=== PATIENT | male | born 1960 | race Caucasian/White ===

== ENCOUNTER 2018-12-18 12:04 | Inpatient (IN) | payer MEDICAID ==
--- NOTE | 2018-12-18 12:47 | EDPHY ---
H & P Stated Complaint: high blood pressure (for ever) homeless hasn't been taking any meds Time Seen by Provider: 12/18/18 12:41 HPI/ROS: HPI: This is a 58-year-old male who presents with Chief Complaint: Frontal headache, elevated blood pressure Location: Head Quality: Pain Duration: Several hours Signs and Symptoms: no shortness of breath at rest, no shortness of breath on exertion, no cough, no chest pain, no palpitations, no lower extremity edema, no wheezing, no orthopnea, no paroxysmal nocturnal dyspnea, no fever, no injury/ trauma, no hemoptysis, no carpal pedal spasms Timing: Acute Severity: Moderate Context: Patient reports that he has a history hypertension times 20 years and used to take Diovan but has not taken in greater than 5 years. Patient reports that she started to developed frontal sharp headache that is moderate in intensity this morning. He believes that this is related to his elevated blood pressure. He is homeless. Has no primary care provider. He denies any chest pain, shortness of breath, lower extremity edema, orthopnea, dizziness, vision changes. Modifying Factors: None Comment: ROS: A comprehensive 10 system review of systems is otherwise negative aside from elements mentioned in the history of present illness. MEDICAL/SURGICAL/SOCIAL HISTORY: Medical history: Hypertension. Surgical history: Denies Social history: Homeless. Marijuana user. Nontobacco user. Denies drug use. CONSTITUTIONAL: Overweight, nontoxic appearing middle-aged white male, awake and alert, no obvious distress HEENT: Atraumatic and normocephalic, PERRL, EOMI. Nares patent; no rhinorrhea; no nasal mucosal edema. Tympanic membranes clear. Oropharynx clear, no exudate and moist pink mucosa. Airway patent. No lymphadenopathy. No meningismus. No carotid bruits. Cardiovascular: Normal S1/S2, regular rate, regular rhythm, without murmur rub or gallop. PULMONARY/CHEST: Symmetrical and nontender. Clear to auscultation bilaterally. Good air movement. No accessory muscle usage. ABDOMEN: Soft, nondistended, nontender, no rebound, no guarding, no peritoneal signs, no masses or organomegaly. No CVAT. EXTREMITIES: 2/2 pulses, strength 5/5, no deformities, no clubbing, no cyanosis or edema. NEUROLOGICAL: no focal neuro deficits. GCS 15. Cranial nerves 2-12 grossly intact. SKIN: Warm and dry, no erythema. no rash. Good capillary refill. Source: Patient Exam Limitations: No limitations - Personal History Current Tetanus Diphtheria and Acellular Pertussis (TDAP): Unsure - Medical/Surgical History Hx Asthma: No Hx Chronic Respiratory Disease: No Hx Diabetes: No Hx Cardiac Disease: No Hx Renal Disease: No Hx Cirrhosis: No Hx Alcoholism: No Hx HIV/AIDS: No Hx Splenectomy or Spleen Trauma: No Other PMH: htn - Social History Smoking Status: Never smoked Constitutional: Initial Vital Signs Temperature (C) 36.9 C 12/18/18 12:14 Heart Rate 94 12/18/18 12:14 Respiratory Rate 18 12/18/18 12:14 Blood Pressure 207/126 H 12/18/18 12:14 O2 Sat (%) 97 12/18/18 12:14 O2 Delivery Mode Room Air Allergies/Adverse Reactions: Penicillins Allergy (Verified 12/18/18 12:14) Home Medications: Medication Instructions Recorded Ibuprofen [Advil Migraine] 200 mg PO DAILY PRN 12/18/18 Multivitamins [Multivitamin (*)] 1 each PO DAILY 12/18/18 Medical Decision Making - Diagnostics Imaging Results: Imaging Impressions Chest X-Ray 12/18/18 12:41 Impression: 1. Mild airways disease. No pneumonia or effusion. 2. Suspect lingular atelectasis. Recommend follow-up chest radiograph in 4-6 weeks to ensure resolution. Findings discussed with Emergency Department physician printing assistant, Alize Mullen on 12/18/2018, 13:27. Head CT 12/18/18 12:47 Impression: 1. Left basal ganglia 5 mm old lacunar infarct. 2. No acute hemorrhage, hydrocephalus or mass effect. 3. No sinusitis. Findings and recommendations discussed with Emergency Department physician, Alize Mullen PAC at 13:24 hour, 12/18/2018. Final report concurs with initial preliminary interpretation. Chest/Thorax CTA 12/18/18 13:23 Impression: 1. No evidence of acute pulmonary embolism. 2. Pulmonary opacities in the right middle lobe and right lower lobe suggestive of acute pneumonia, possibly atypical/viral in nature. Adjacent pulmonary nodules possibly infectious in nature, however continued radiographic surveillance is recommended with follow-up CT chest to document resolution. Alize Mullen was notified of these findings by telephone at 3:11 PM on 12/18/2018 ED Course/Re-evaluation: Vital signs reviewed and show blood pressure 207/126 with heart rate 100s. Placed on monitor and storage bin tender. EKG my read with attending shows sinus tachycardia with a rate of 90 beats per minute, nonspecific ST changes IV access, laboratory studies, head CT imaging due to sudden onset of acute sharp headache with severe hypertension 1310: Notified by tech that troponin 0.00 Labs reviewed. WBC 11 K, no anemia, no platelet dysfunction, potassium 3.1 - magnesium level ordered, creatinine 1.0, glucose 112, proBNP 558 No Signs of end-organ dysfunction. Potassium chloride 40 mEq given 1320: Called by Dr. Alicia, head CT scan shows no bleed, no sinusitis but does show an old tiny infarct in the left basal ganglia 1325: D-dimer elevated; CTA chest ordered. 1327: Called by Dr. Alicia, chest x-ray shows no opacity, no effusion. There is a small atypical area on the left hemidiaphragm that is most likely is atelectasis but chest x-ray follow-up in 4-6 weeks is recommended for resolution and interval change. 1409: Magnesium 2.0 1510: Called by Radiology, Dr. Car, who advised that CTA shows no pulmonary embolism but does show ground-glass and right middle lobe and right lower lobe pneumonia. Blood Cultures ordered and Given IV Rocephin and Zithromax. ED decision to consult hospitalist for admission for hypertensive urgency, community-acquired pneumonia, homeless. Spoke with Dr. Damian who kindly agrees to admit patient and provide further care. This patient was seen under the supervision of my secondary supervising physician. I evaluated care for this patient with attending. Discussed this patient with Dr. Russell. Differential Diagnosis: Headache including but not limited to subarachnoid hemorrhage, migraine headache , tension headache and infectious causes such as meningitis, pharyngitis and sinusitis. Chest pain including but not limited to myocardial ischemia, pulmonary embolus, chest wall pain, pleural inflammation and pulmonary infectious causes. - Data Points Laboratory Results: Laboratory Results 12/18/18 12:50 12/18/18 12:50 12/18/18 12/18/18 12/18/18 12:55 12:50 12:50 WBC RBC Hgb Hct MCV MCH MCHC RDW Plt Count MPV Neut % (Auto) Lymph % (Auto) Ing[place] % (Auto) Eos % (Auto) Baso % (Auto) Nucleat RBC Rel Count Absolute Neuts (auto) Absolute Lymphs (auto) Absolute Monos (auto) Absolute Eos (auto) Absolute Basos (auto) Absolute Nucleated RBC Immature Gran % Immature Gran # D-Dimer 0.96 ug/mLFEU H ug/mLFEU (0.00-0.50) Sodium Potassium Chloride Carbon Dioxide Anion Gap BUN Creatinine Estimated GFR Glucose Calcium Magnesium 2.0 mg/dL mg/dL (1.6-2.3) POC Troponin I 0.00 ng/mL ng/mL (0.00-0.08) NT-Pro-B Natriuret Pep 12/18/18 12/18/18 12:50 12:50 WBC 11.31 10^3/uL H 10^3/uL (3.80-9.50) RBC 4.60 10^6/uL 10^6/uL (4.40-6.38) Hgb 14.4 g/dL g/dL (13.7-17.5) Hct 41.4 % % (40.0-51.0) MCV 90.0 fL fL (81.5-99.8) MCH 31.3 pg pg (27.9-34.1) MCHC 34.8 g/dL g/dL (32.4-36.7) RDW 12.7 % % (11.5-15.2) Plt Count 285 10^3/uL 10^3/uL (150-400) MPV 9.0 fL fL (8.7-11.7) Neut % (Auto) 73.6 % % (39.3-74.2) Lymph % (Auto) 16.6 % % (15.0-45.0) Ingham % (Auto) 5.7 % % (4.5-13.0) Eos % (Auto) 2.6 % % (0.6-7.6) Baso % (Auto) 0.6 % % (0.3-1.7) Nucleat RBC Rel Count 0.0 % % (0.0-0.2) Absolute Neuts (auto) 8.33 10^3/uL H 10^3/uL (1.70-6.50) Absolute Lymphs (auto) 1.88 10^3/uL 10^3/uL (1.00-3.00) Absolute Monos (auto) 0.64 10^3/uL 10^3/uL (0.30-0.80) Absolute Eos (auto) 0.29 10^3/uL 10^3/uL (0.03-0.40) Absolute Basos (auto) 0.07 10^3/uL 10^3/uL (0.02-0.10) Absolute Nucleated RBC 0.00 10^3/uL 10^3/uL (0-0.01) Immature Gran % 0.9 % % (0.0-1.1) Immature Gran # 0.10 10^3/uL 10^3/uL (0.00-0.10) D-Dimer Sodium 137 mEq/L mEq/L (135-145) Potassium 3.1 mEq/L L mEq/L (3.5-5.2) Chloride 103 mEq/L mEq/L (97-110) Carbon Dioxide 24 mEq/l mEq/l (22-31) Anion Gap 10 mEq/L mEq/L (6-14) BUN 17 mg/dL mg/dL (7-23) Creatinine 1.0 mg/dL mg/dL (0.7-1.3) Estimated GFR > 60 Glucose 112 mg/dL H mg/dL (70-100) Calcium 9.0 mg/dL mg/dL (8.5-10.4) Magnesium POC Troponin I NT-Pro-B Natriuret Pep 558 pg/mL H pg/mL (0-125) Medications Given: Discontinued Medications Potassium Chloride (Potassium Chloride Oral Liquid) 40 meq PO EDNOW ONE Stop: 12/18/18 13:40 Last Admin: 12/18/18 15:09 Dose: 40 meq Point of Care Test Results: Chemistry 12/18/18 12:55 POC Troponin I 0.00 ng/mL ng/mL (0.00-0.08) Departure - Departure Disposition: [facility] Acute Clinical Impression: Infarction of left basal ganglia, Hypertensive urgency, Hypokalemia Community acquired pneumonia Qualifiers: Laterality: right Lung location: lower lobe of lung Qualified Code(s): J18.1 - Lobar pneumonia, unspecified organism Condition: Fair
[2018-12-18 13:08] LABS: PLATELET COUNT 285 10^3/uL (150-400)
[2018-12-18] MEDS ORDERED: POTASSIUM CL 20 MEQ/15 ML UDCUP PO ONE (13:39)
[2018-12-18] MEDS ORDERED: IOPAMIDOL (ISOVUE 370) 100 ML BTL IV ONE (13:47)
[2018-12-18] MEDS ORDERED: AZITHROMYCIN IV 500 MG in D5W 250 ML IV ONE (15:11)
[2018-12-18] MEDS ORDERED: LABETALOL HCL 5 MG/ML 20 ML MDV IVP ONE (15:23)
[2018-12-18] MEDS ORDERED: HYDROCODONE/APAP 5/325 TAB PO PRN (15:29)
[2018-12-18] MEDS ORDERED: ONDANSETRON 4 MG/2 ML VIAL IVP PRN (15:29)
[2018-12-18] MEDS ORDERED: HYDROmorphONE/DILAUDID 1 MG/ML INJ IVP PRN (15:29)
[2018-12-18] MEDS ORDERED: ONDANSETRON DISINTEGRATING 4 MG TAB PO PRN (15:29)
--- NOTE | 2018-12-18 16:23 | PDGENHP ---
History and Physical - Chief Complaint cough, headache - History of Present Illness 58 yo male with h/o hypertension presented to the ED after he developed a pounding, pulsating headache behind his eyes while walking up [place] to the [facility]. He denied CP or SOB. He does endorse of cough, which is intermittently productive. He denies fevers, chills or rigors. No abdominal pain, N/V. No changes in bowel or bladder habits. He also acknowledges LE edema, which is chronic. He used to take anti-hypertensive medications, but has not taken meds for some time due to inability to pay. He is worried about his poor hygiene and tearful about his difficulty getting his life together. He is admitted for hypertensive urgency and possible pneumonia. History Information - Allergies/Home Medication List Allergies/Adverse Reactions: Penicillins Allergy (Verified 12/18/18 12:14) Home Medications: Ibuprofen [Advil Migraine] 200 mg PO DAILY PRN 12/18/18 [Last Taken Unknown] Multivitamins [Multivitamin (*)] 1 each PO DAILY 12/18/18 [Last Taken Unknown] I have personally reviewed and updated: family history, medical history, social history, surgical history - Past Medical History hypertension - Surgical History Reports: no pertinent surgical hx - Family History Positive for: cancer Additional family history: Mom had NHL - Social History Smoking Status: Never smoked Alcohol Use: Rarely Drug Use: Marijuana Additional social history: Homeless Review of Systems Review of Systems: ROS: 10pt was reviewed & negative except for what was stated in HPI & below Physical Exam Physical Exam: Temp Pulse Resp BP Pulse Ox 36.9 C 104 H 16 191/131 H 97 12/18/18 12:14 12/18/18 14:16 12/18/18 14:16 12/18/18 14:16 12/18/18 14:16 Constitutional: no apparent distress Eyes: PERRL Ears, Nose, Mouth, Throat: moist mucous membranes Cardiovascular: regular rate and rhythym Respiratory: no respiratory distress, clear to auscultation, reduced air movement Gastrointestinal: normoactive bowel sounds, soft, non-tender abdomen Skin: warm Musculoskeletal: full muscle strength, other (2-3 + b/l LE pitting edema) Neurologic: AAOx3 Psychiatric: interacting appropriately Lab Data & Imaging Review 12/18/18 12:50 12/18/18 12:50 WBC 11.31 10^3/uL (3.80-9.50) H 12/18/18 12:50 RBC 4.60 10^6/uL (4.40-6.38) 12/18/18 12:50 Hgb 14.4 g/dL (13.7-17.5) 12/18/18 12:50 Hct 41.4 % (40.0-51.0) 12/18/18 12:50 MCV 90.0 fL (81.5-99.8) 12/18/18 12:50 MCH 31.3 pg (27.9-34.1) 12/18/18 12:50 MCHC 34.8 g/dL (32.4-36.7) 12/18/18 12:50 RDW 12.7 % (11.5-15.2) 12/18/18 12:50 Plt Count 285 10^3/uL (150-400) 12/18/18 12:50 MPV 9.0 fL (8.7-11.7) 12/18/18 12:50 Neut % (Auto) 73.6 % (39.3-74.2) 12/18/18 12:50 Lymph % (Auto) 16.6 % (15.0-45.0) 12/18/18 12:50 Payne % (Auto) 5.7 % (4.5-13.0) 12/18/18 12:50 Eos % (Auto) 2.6 % (0.6-7.6) 12/18/18 12:50 Baso % (Auto) 0.6 % (0.3-1.7) 12/18/18 12:50 Nucleat RBC Rel Count 0.0 % (0.0-0.2) 12/18/18 12:50 Absolute Neuts (auto) 8.33 10^3/uL (1.70-6.50) H 12/18/18 12:50 Absolute Lymphs (auto) 1.88 10^3/uL (1.00-3.00) 12/18/18 12:50 Absolute Monos (auto) 0.64 10^3/uL (0.30-0.80) 12/18/18 12:50 Absolute Eos (auto) 0.29 10^3/uL (0.03-0.40) 12/18/18 12:50 Absolute Basos (auto) 0.07 10^3/uL (0.02-0.10) 12/18/18 12:50 Absolute Nucleated RBC 0.00 10^3/uL (0-0.01) 12/18/18 12:50 Immature Gran % 0.9 % (0.0-1.1) 12/18/18 12:50 Immature Gran # 0.10 10^3/uL (0.00-0.10) 12/18/18 12:50 D-Dimer 0.96 ug/mLFEU (0.00-0.50) H 12/18/18 12:50 Sodium 137 mEq/L (135-145) 12/18/18 12:50 Potassium 3.1 mEq/L (3.5-5.2) L 12/18/18 12:50 Chloride 103 mEq/L (97-110) 12/18/18 12:50 Carbon Dioxide 24 mEq/l (22-31) 12/18/18 12:50 Anion Gap 10 mEq/L (6-14) 12/18/18 12:50 BUN 17 mg/dL (7-23) 12/18/18 12:50 Creatinine 1.0 mg/dL (0.7-1.3) 12/18/18 12:50 Estimated GFR > 60 12/18/18 12:50 Glucose 112 mg/dL (70-100) H 12/18/18 12:50 Calcium 9.0 mg/dL (8.5-10.4) 12/18/18 12:50 Magnesium 2.0 mg/dL (1.6-2.3) 12/18/18 12:50 POC Troponin I 0.00 ng/mL (0.00-0.08) 12/18/18 12:55 NT-Pro-B Natriuret Pep 558 pg/mL (0-125) H 12/18/18 12:50 Visualized and Interpreted Chest x-ray results: Yes Chest X-Ray results: infiltrate Visualized and Interpreted EKG results: Yes EKG Interpretation: Positive for: normal sinsus rhythm, Q waves Assessment & Plan Assessment: 58 yo homeless male presents with EDWARD and cough, found to have hypertensive urgency and possible CAP Hypertensive urgency - symptomatic with EDWARD, no CP or SOB. EKG with Q waves in anterior/inferior leads. -IV Labetalol now, aiming for 25% reduction in BP over next few hours -start oral Lisinopril -PRN Labetalol for SBP >180 -echo as below -monitor on telemetry CAP - Pt does have cough and mild leukocytosis, afebrile, does not appear toxic. BCx's pending. -send PCT and RVP -will cont Ceftriaxone / Azithromycin for now -prn nebs, anti-tussives LE edema - chronic, suspect venous stasis, but warrants further w/u -b/l LE u/s to r/o DVT -check echo -start oral lasix, elevate legs Hypokalemia - replaced orally in ED -recheck in am Homelessness - CM consult DVT PPLX - Lovenox Full code Dispo - admit to inpt, anticipate >48 hrs hospitalization for ongoing management of hypertensive urgency and possible CAP
--- NOTE | 2018-12-18 17:21 | ASMTCMCOM ---
CM Note CM Note Notes: Pt presented to the Emergency Department with complaints of a headache, elevated blood pressure and edema. History includes marijuana use, homelessness and HTN. Pt admitted for hypertensive urgency and possible PNA. Discharge needs remain unclear at this time. CM will continue to follow. Discharge Plan: To be determined Date Signed: 12/18/2018 05:21 PM Electronically Signed By:Mireya Koch RN
[2018-12-18] MEDS: LISINOPRIL 10 MG TAB PO SCH (17:49)
[2018-12-18] MEDS: FUROSEMIDE 20 MG TAB PO SCH (17:52)
[2018-12-18] MEDS: guaiFENesin 600 MG TAB.ER PO SCH (21:25)
[2018-12-18] MEDS: ACETAMINOPHEN 325 MG TAB PO PRN (21:25)
[2018-12-18] MEDS: ENOXAPARIN 40 MG/0.4 ML SYR SC SCH (21:25)
[2018-12-18] MEDS: GUAIFENESIN/DM 10 ML UDCUP PO PRN (21:26)
[2018-12-18] MEDS: LABETALOL HCL 5 MG/ML 20 ML MDV IVP PRN (21:35)
[2018-12-19] MEDS: LABETALOL HCL 5 MG/ML 20 ML MDV IVP PRN ×3 (02:09→20:23)
[2018-12-19 04:54] LABS: PLATELET COUNT 303 10^3/uL (150-400)
--- NOTE | 2018-12-19 07:53 | PDMN ---
Medical Necessity Medical necessity: Pt meets IP criteria per MD & MCG M-197; est los >2 mn for eval/tx of hypertensive urgency (BP 207/126), LE edema & possible pneumonia; admit for further workup/monitoring, IV abx & IV Labetol/med management; hx homelessness
[2018-12-19] MEDS: POTASSIUM CL 20 MEQ TAB PO SCH (08:35)
[2018-12-19] MEDS: guaiFENesin 600 MG TAB.ER PO SCH ×2 (08:35→20:24)
[2018-12-19] MEDS: LISINOPRIL 10 MG TAB PO SCH (08:35)
[2018-12-19] MEDS: FUROSEMIDE 20 MG TAB PO SCH (08:36)
[2018-12-19] MEDS: ENOXAPARIN 40 MG/0.4 ML SYR SC SCH ×2 (08:36→20:33)
[2018-12-19] MEDS ORDERED: AZITHROMYCIN IV 500 MG in NS 250 ML IV SCH (09:00)
--- NOTE | 2018-12-19 12:16 | ECHO ---
[email or web address] [address] [address] Main: [phone] Echocardiography Examination Transthoracic Name: HOLGER CHAVEZ MR#: [id number] Study Date: 12/18/2018 Study Time: 04:32 PM Date of : 1960 Age: 58 year(s) Height: 190.5 cm (75 in.) Weight: 148.33 kg (327 lb.) BSA: 2.7 m2 Gender: Male Examination: Echo Indication: HTN/LE edema Image Quality: Fair Contrast: Requested by: ?? BP: / Heart Rate: Rhythm: Indication: HTN/LE edema Procedure Staff Referring Physician: Computer Sciences Professor: Kriss Khanna RDCS Reading Physician: Toni Love MD Requesting Provider: Indication: HTN/LE edema Measurements Chambers AV/MV Label Value Normal Value Label Value Normal Value EF lower range (%) 65 % AV PGmean 5 mmHg EF upper range (%) 70 % AV Vmax, Curve 1.45 m/s IVSd, 2D 1.1 cm (0.6cm - 1.1cm) MV A Vmax 0.92 m/s LVDd, 2D 5.9 cm (4.2cm - 5.9cm) MV E' lateral 0.06 m/s LVEF, BP 68 % (55% - 70%) MV E' mean 0.06 m/s LVEF, MOD2 71 % (55% - 70%) MV E' septal 0.06 m/s LVEF, MOD4 62 % (55% - 70%) MV E Vmax 0.58 m/s LVPWd, 2D 1.1 cm (0.6cm - 1cm) MV E/A 0.63 LA Area, A2C 26 cm2 (0cm2 - 20cm2) MV E/E' lateral 10.5 LA Volume, A2C 85 ml (18ml - 58ml) MV E/E' mean 9.67 LADs, 2D 4.2 cm (3cm - 4cm) MV E/E' septal 9.8 (0.5 - 1.7) Additional Vessels Label Value Normal Value AoAsc 3.8 cm AoRoot, MM 3.5 cm (2.2cm - 3.7cm) Conclusions Left ventricular systolic ejection fraction was normal (>65%) Patient: HOLGER CHAVEZ Study Date: 12/18/2018 Page 1 of 2 04:32 PM Mild mitral regurgitation Grossly normal aortic, tricuspid, and pulmonic valves Findings Left Ventricle: E/a wave reversal.. Normal global systolic left ventricular function. EF range is estimated at 65 % - 70 %. There is mild concentric left ventricular hypertrophy. Right Ventricle: Normal size right ventricle. Mitral Valve: Mitral valve appears structurally normal. Mild mitral regurgitation. Aortic Valve: Aortic valve opens well.. Aortic leaflets are structurally normal. No aortic valve regurgitation. Tricuspid Valve: Tricuspid valve leaflets are structurally normal. Trivial tricuspid regurgitation. Pulmonic Valve: Pulmonic valve is poorly visualized. Aorta: The aortic root size in M-mode measures 3.5 cm. The ascending aorta measures 3.8 cm. Aorta Measurements AoRoot, MM is 3.5 cm. Exam Details Procedure Ordered: Echo Procedure Status: Routine study Image Quality: Fair Facility Location: Cardiac Echo 1 (No Signature Object) Patient: HOLGER CHAVEZ Study Date: 12/18/2018 Page 2 of 2 04:32 PM [id number]
[2018-12-19] MEDS: ACETAMINOPHEN 325 MG TAB PO PRN ×2 (14:51→20:27)
--- NOTE | 2018-12-19 15:06 | HOSPPROG ---
Hospitalist Progress Note Assessment/Plan: 58 yo homeless male presents with EDWARD and cough, found to have hypertensive urgency and possible CAP Hypertensive urgency - symptomatic with EDWARD, no CP or SOB. EKG with Q waves in anterior/inferior leads. -S/p IV Labetalol on admission -started on oral Lisinopril, will continue for now -PRN Labetalol for SBP >180 -echo as below -monitor on telemetry CAP - Pt does have cough and mild leukocytosis, afebrile, does not appear toxic. BCx's pending. -send PCT- elevated to 0.13 on admission and RVP- negative -will cont Ceftriaxone / Azithromycin -prn nebs, anti-tussives LE edema - chronic, suspect venous stasis, but warrants further w/u -b/l LE u/s to r/o DVT -TTE shows normal EF, normal RV -started on oral lasix, will d/c Hypokalemia - replaced orally in ED -3.7 this AM, continue to monitor Homelessness - CM consulted DVT PPLX - Lovenox Full code Dispo - Pending clinical course, possible d/c tomorrow if BP improved, respiratory status Subjective: Patient reports some improved SOB this AM Objective: Vital Signs Temp Pulse Resp BP Pulse Ox 36.4 C 91 12 194/117 H 97 12/19/18 11:19 12/19/18 11:19 12/19/18 11:19 12/19/18 15:00 12/19/18 11:19 Microbiology 12/19/18 09:50 Respiratory Panel (PCR) - Final Nasal, Sinus - Swab No Organism Detected By Pcr 12/18/18 21:20 - Final Sputum, Expectorated Laboratory Results 12/19/18 03:52 12/19/18 03:52 12/18/18 12/19/18 12/20/18 05:59 05:59 06:59 Intake Total 650 Output Total 1750 300 Balance -1100 -300 - Physical Exam Constitutional: no apparent distress Eyes: PERRL Ears, Nose, Mouth, Throat: moist mucous membranes Cardiovascular: regular rate and rhythym Respiratory: no respiratory distress, reduced air movement Gastrointestinal: soft, non-tender abdomen Musculoskeletal: full muscle strength Neurologic: AAOx3 Psychiatric: interacting appropriately ICD10 Worksheet Patient Problems: Problems Problem Status Onset Community acquired pneumonia Acute Hypertensive urgency Acute Hypokalemia Acute Infarction of left basal ganglia Acute
[2018-12-19] MEDS ORDERED: LISINOPRIL 10 MG TAB PO ONE (16:02)
[2018-12-19] MEDS: GUAIFENESIN/DM 10 ML UDCUP PO PRN (20:32)
[2018-12-20] MEDS: LABETALOL HCL 5 MG/ML 20 ML MDV IVP PRN ×2 (05:53→19:33)
[2018-12-20] MEDS: guaiFENesin 600 MG TAB.ER PO SCH ×2 (08:38→21:57)
[2018-12-20] MEDS: LISINOPRIL 10 MG TAB PO SCH ×2 (08:38→08:49)
[2018-12-20] MEDS: POTASSIUM CL 20 MEQ TAB PO SCH (08:38)
[2018-12-20] MEDS: FUROSEMIDE 20 MG TAB PO SCH (08:38)
[2018-12-20] MEDS: ENOXAPARIN 40 MG/0.4 ML SYR SC SCH ×2 (08:39→21:57)
[2018-12-20] MEDS ORDERED: AZITHROMYCIN 250 MG TAB PO SCH (09:00)
--- NOTE | 2018-12-20 14:30 | HOSPPROG ---
Hospitalist Progress Note Assessment/Plan: 58 yo homeless male presents with EWDARD and cough, found to have hypertensive urgency and possible CAP Hypertensive urgency - symptomatic with EDWARD, no CP or SOB. EKG with Q waves in anterior/inferior leads. -S/p IV Labetalol on admission -started on oral Lisinopril 10 mg on admission -BP continues to be elevated 186/96 this AM, increased Lisinopril to 20 mg, may need to increase to 40 mg -PRN Labetalol for SBP >180 -echo as below -monitor on telemetry CAP - Pt does have cough and mild leukocytosis, afebrile, does not appear toxic. BCx's NGTD. - PCT elevated to 0.13 on admission and RVP- negative -will transition from Ceftriazone/Azithromycin to Levaquin, Day 3/5 of abx -prn nebs, anti-tussives LE edema - chronic, suspect venous stasis, but warrants further w/u -b/l LE u/s to r/o DVT negative -TTE shows normal EF, normal RV -started on oral lasix, will d/c Hypokalemia - replaced orally in ED -3.7 this AM, continue to monitor Homelessness - CM consulted DVT PPLX - Lovenox Full code Dispo - Pending clinical course, possible d/c tomorrow if BP improved, respiratory status Subjective: Patient reports continued headache Objective: Vital Signs Temp Pulse Resp BP Pulse Ox 36.8 C 103 H 18 205/120 H 94 12/20/18 12:00 12/20/18 12:00 12/20/18 12:00 12/20/18 12:00 12/20/18 12:00 Microbiology 12/18/18 21:20 - Final Sputum, Expectorated 12/19/18 09:50 Respiratory Panel (PCR) - Final Nasal, Sinus - Swab No Organism Detected By Pcr Laboratory Results 12/19/18 03:52 12/19/18 03:52 12/19/18 12/20/18 12/21/18 04:59 05:59 05:59 Intake Total Output Total 900 Balance -900 - Physical Exam Constitutional: no apparent distress Eyes: PERRL Ears, Nose, Mouth, Throat: moist mucous membranes Cardiovascular: regular rate and rhythym Respiratory: no respiratory distress Gastrointestinal: soft, non-tender abdomen Skin: warm Musculoskeletal: full muscle strength Neurologic: AAOx3 Psychiatric: anxious ICD10 Worksheet Patient Problems: Problems Problem Status Onset Community acquired pneumonia Acute Hypertensive urgency Acute Hypokalemia Acute Infarction of left basal ganglia Acute
--- NOTE | 2018-12-20 15:42 | ASMTCMCOM ---
CM Note CM Note Notes: Met with pt and spoke at length about community resources and next steps for pt. He reports he is willing to go to [facility] tomorrow and is appreciative of CM reserving a bed for him. Pt was provided information about [employer], obtaining linkage at [facility], and working with [facility] to obtain temporary benefits. Pt was appreciative of the information. Pt needs PCP appt to follow-up with; CM attempted to schedule but could not because [facility] is closed Friday. Plan: [facility]. Needs PCP appt at [facility] and Bus passes. Date Signed: 12/20/2018 03:41 PM Electronically Signed By:MAYKEL Strickland
[2018-12-20] MEDS: ACETAMINOPHEN 325 MG TAB PO PRN (19:31)
[2018-12-21] MEDS: LABETALOL HCL 5 MG/ML 20 ML MDV IVP PRN ×5 (00:39→23:38)
[2018-12-21] MEDS: LISINOPRIL 10 MG TAB PO SCH ×2 (08:37→11:10)
[2018-12-21] MEDS ORDERED: LISINOPRIL 20 MG TAB PO ONE (08:37)
[2018-12-21] MEDS: ENOXAPARIN 40 MG/0.4 ML SYR SC SCH ×2 (08:38→20:23)
[2018-12-21] MEDS: guaiFENesin 600 MG TAB.ER PO SCH ×2 (08:38→20:23)
[2018-12-21] MEDS: POTASSIUM CL 20 MEQ TAB PO SCH (08:38)
[2018-12-21] MEDS: ACETAMINOPHEN 325 MG TAB PO PRN ×3 (08:57→22:28)
[2018-12-21] MEDS ORDERED: LOPERAMIDE HCL 2 MG CAP PO PRN (12:11)
[2018-12-21] MEDS: amLODIPine BESYLATE 5 MG TAB PO SCH (12:51)
[2018-12-21] MEDS: GUAIFENESIN/DM 10 ML UDCUP PO PRN ×2 (12:51→23:44)
--- NOTE | 2018-12-21 16:14 | HOSPPROG ---
Hospitalist Progress Note Assessment/Plan: 58 yo homeless male presents with EDWARD and cough, found to have hypertensive urgency and possible CAP Hypertensive urgency - symptomatic with EDWARD, no CP or SOB. EKG with Q waves in anterior/inferior leads. -S/p IV Labetalol on admission -started on oral Lisinopril 10 mg on admission -BP continues to be elevated with SBP in 200's overnight -Increased Lisinopril to 40 mg, added Amlodipine 5 mg qd this afternoon -PRN Labetalol for SBP >180 -echo as below -monitor on telemetry CAP - Pt does have cough and mild leukocytosis, afebrile, does not appear toxic. BCx's NGTD. - PCT elevated to 0.13 on admission and RVP- negative -will transition from Ceftriazone/Azithromycin to Levaquin, Day 4/5 of abx -prn nebs, anti-tussives LE edema - chronic, suspect venous stasis, but warrants further w/u -b/l LE u/s to r/o DVT negative -TTE shows normal EF, normal RV -started on oral lasix, d/c Hypokalemia - replaced orally -continue to monitor Diarrhea - Having multiple loose stools overnight - C Diff negative - Likely antibiotic related diarrhea, will start PRN Imodium Homelessness - CM consulted DVT PPLX - Lovenox Full code Dispo - Pending clinical course, possible d/c tomorrow if BP improved, respiratory status Subjective: Patient reports multiple loose BMs overnight Objective: Vital Signs Temp Pulse Resp BP Pulse Ox 37.0 C 95 16 177/112 H 97 12/21/18 12:00 12/21/18 14:38 12/21/18 12:00 12/21/18 14:38 12/21/18 12:00 Microbiology 12/18/18 21:20 - Final Sputum, Expectorated Laboratory Results 12/19/18 03:52 12/19/18 03:52 12/20/18 12/21/18 12/22/18 05:59 05:59 05:59 Intake Total 1850 Output Total 1999 Balance -150 - Physical Exam Constitutional: no apparent distress Eyes: PERRL Ears, Nose, Mouth, Throat: moist mucous membranes Cardiovascular: regular rate and rhythym Respiratory: no respiratory distress, reduced air movement Gastrointestinal: soft, non-tender abdomen Skin: warm Musculoskeletal: full muscle strength Neurologic: AAOx3 Psychiatric: anxious ICD10 Worksheet Patient Problems: Problems Problem Status Onset Community acquired pneumonia Acute Hypertensive urgency Acute Hypokalemia Acute Infarction of left basal ganglia Acute
[2018-12-22 08:50] VITALS: BP 187/105
[2018-12-22] MEDS: LISINOPRIL 10 MG TAB PO SCH (08:53)
[2018-12-22] MEDS: guaiFENesin 600 MG TAB.ER PO SCH (08:54)
[2018-12-22] MEDS: POTASSIUM CL 20 MEQ TAB PO SCH (08:54)
[2018-12-22] MEDS: amLODIPine BESYLATE 5 MG TAB PO SCH (08:54)
[2018-12-22] MEDS: ENOXAPARIN 40 MG/0.4 ML SYR SC SCH (08:55)
[2018-12-22] MEDS: ACETAMINOPHEN 325 MG TAB PO PRN (08:59)
--- NOTE | 2018-12-22 11:49 | ASMTLACE ---
LACE Length of stay for Answers: 3 days current admission Acuity / Level of Answers: Yes Care: Did the patient have an inpatient admission? Comorbidities - select Answers: Other Notes: HTN all that apply # of Emergency department Answers: 1-2 visits in the last 6 months Social determinants Answers: Homelessness (street, chcf) Score: 11 Date Signed: 12/22/2018 11:47 AM Electronically Signed By:Lisa Moreira RN
--- NOTE | 2018-12-22 11:53 | ASMTDCNOTE ---
Case Management Discharge Discharge Order Complete? Answers: Yes Patient to Obtain Answers: Independently Medications Transportation Arranged Answers: Family/Friends Discharge Comments Notes: 12/22/2018 Case Mangement Note Set appointment at [facility] on at 2 pm. Provided info to pt. Pt declined custodial bed. Has arranged to stay with a friend rather than custodial. Declined coordinated entry stating it wasn't necessary. [facility] to follow pt. Case Management d/c poc: home with friend with appt at Dr. Amaya's office on . Date Signed: 12/22/2018 11:50 AM Electronically Signed By:Lisa Moreira RN
--- NOTE | 2018-12-22 11:53 | ASDISCHSUM ---
Discharge Information Plan Status:Home with No Needs Medically Cleared to Leave:12/22/2018 Discharge Date:12/22/2018 CM D/C Disposition:Home, Routine, Self-Care ADT D/C Disposition: Projected Discharge Date:12/22/2018 Transportation at D/C: Discharge Delay Reason: Follow-Up Date:12/22/2018 Discharge Slot: Final Diagnosis: Placement Information Patient Contact Information Contact Name:EVA Relationship: Address: Home Phone: Work Phone: City: Alternate Phone: State[email or web address] Code: Email: Financial Information Financial Class:Medicaid Primary Plan Desc:MEDICAID [facility] Primary Plan Number:[id number] Secondary Plan Desc: Secondary Plan Number: Assessment Information LACE LACE Length of stay for Answers: 3 days current admission Acuity / Level of Answers: Yes Care: Did the patient have an inpatient admission? Comorbidities - select Answers: Other Notes: HTN all that apply # of Emergency department Answers: 1-2 visits in the last 6 months Social determinants Answers: Homelessness (street, residential) Score: 11 Date Signed: 12/22/2018 11:47 AM Electronically Signed By:Lisa Moreira RN [facility] CM Progress Note CM Note CM Note Notes: Pt presented to the Emergency Department with complaints of a headache, elevated blood pressure and edema. History includes marijuana use, homelessness and HTN. Pt admitted for hypertensive urgency and possible PNA. Discharge needs remain unclear at this time. CM will continue to follow. Discharge Plan: To be determined Date Signed: 12/18/2018 05:21 PM Electronically Signed By:Mireya Koch RN [facility] CM Progress Note CM Note CM Note Notes: Met with pt and spoke at length about community resources and next steps for pt. He reports he is willing to go to [facility] tomorrow and is appreciative of CM reserving a bed for him. Pt was provided information about Coordinated Entry, obtaining linkage at [facility], and working with [facility] to obtain temporary benefits. Pt was appreciative of the information. Pt needs PCP appt to follow-up with; CM attempted to schedule but could not because [employer] is closed Friday. Plan: [facility]. Needs PCP appt at [facility] and Bus passes. Date Signed: 12/20/2018 03:41 PM Electronically Signed By:MAYKEL Strickland Case Management Discharge Plan Note Case Management Discharge Discharge Order Complete? Answers: Yes Patient to Obtain Answers: Independently Medications Transportation Arranged Answers: Family/Friends Discharge Comments Notes: 12/22/2018 Case Mangement Note Set appointment at [facility] on at 2 pm. Provided info to pt. Pt declined residential bed. Has arranged to stay with a friend rather than residential. Declined coordinated entry stating it wasn't necessary. [facility] to follow pt. Case Management d/c poc: home with friend with appt at Dr. Amaya's office on . Date Signed: 12/22/2018 11:50 AM Electronically Signed By:Lisa Moreira RN Intervention Information
--- NOTE | 2018-12-22 16:22 | PDDCSUM ---
Discharge Summary Discharge Summary: Date of Admission: 12/18/2018 Date of Discharge: 12/22/2018 Consults: Behavioral Health Procedures: Head CT, CXR Followup: PCP Hospital Course Problem List: 58 yo homeless male presents with EDWARD and cough, found to have hypertensive urgency and CAP Hypertensive urgency - symptomatic with EDWARD, no CP or SOB. EKG with Q waves in anterior/inferior leads. -S/p IV Labetalol on admission -started on oral Lisinopril 10 mg on admission -Increased Lisinopril to 40 mg, added Amlodipine 5 mg qd for discharge -echo as below -monitor on telemetry CAP - Pt does have cough and mild leukocytosis, afebrile, does not appear toxic. BCx's NGTD. - PCT elevated to 0.13 on admission and RVP- negative -S/p 5 days of abx -prn nebs, anti-tussives LE edema - chronic, suspect venous stasis, but warrants further w/u -b/l LE u/s to r/o DVT negative -TTE shows normal EF, normal RV -started on oral lasix, d/c due to normal TTE Hypokalemia - replaced orally, continue to monitor Diarrhea - Having multiple loose stools overnight - C Diff negative - Likely antibiotic related diarrhea, PRN Imodium Homelessness - CM consulted Time spent on discharge was >35 minutes with >50% of time spent on patient education and counseling.
[2018-12-23] MEDS ORDERED: FLUoxetine 20 MG CAP PO SCH (09:00)
--- NOTE | 2018-12-25 19:45 | CPEKG ---
Test Reason : OPEN Blood Pressure : / mmHG Vent. Rate : 098 BPM Atrial Rate : 099 BPM P-R Int : 191 ms QRS Dur : 092 ms QT Int : 339 ms P-R-T Axes : 036 -29 019 degrees QTc Int : 433 ms Sinus rhythm Probable left atrial enlargement Inferior infarct, old Anteroseptal infarct, old Partial missing lead(s): V6 Confirmed by Sergio Russell ([id number]) on 12/25/2018 7:45:04 PM Referred By: Sergio Russell Confirmed By:Sergio Russell
== END 2018-12-22 11:58 | disposition home or self-care (01) | DRG 139 ==
LOC: F2W 17:17
PROVIDERS: ADMIT Hospitalist; ATTEND Internal Medicine
DX: J18.0 Bronchopneumonia, unspecified organism (principal); I10 Essential (primary) hypertension; I16.0 Hypertensive urgency; Z86.73 Personal history of transient ischemic attack (TIA), and cerebral infarction without residual deficits; R60.0 Localized edema; E87.6 Hypokalemia; R19.7 Diarrhea, unspecified; Z59.0 Homelessness
CPT/HCPCS: 84484-ER; 96374; J0456; J0696; J1650; Q9967

== ENCOUNTER 2019-03-01 12:12 | Emergency (ER) | payer MEDICAID ==
--- NOTE | 2019-03-01 12:58 | EDPHY ---
H & P Time Seen by Provider: 03/01/19 12:54 HPI/ROS: Chief complaint. High blood pressure HPI. 59-year-old male here with sense anxiety and also that his blood pressure is elevated. Patient has a history of hypertension. He was admitted for hypertensive urgency in early December. Extensive workup. Discharged on lisinopril 40 mg daily and Norvasc 5 mg daily. Patient normally also takes Prozac 20 mg daily. He ran out of his medication 1 and half weeks ago. No chest pain or shortness of breath. No fever. Feeling of anxiety. ROS 10 systems were reviewed and negative with the exception of the elements mentioned in the history of present illness Past Medical/Surgical History: Hypertension, depression, anxiety Social History: Single, nonsmoker, no alcohol Smoking Status: Never smoked Physical Exam: General Appearance: Alert well-developed male mild distress vital signs show initial heart rate 117 with initial blood pressure 226/134 Eyes: Pupils equal and round no pallor or injection. ENT, Mouth: Mucous membranes are moist. Respiratory: There are no retractions, lungs are clear to auscultation. Cardiovascular: Regular rate and rhythm. Tachycardia Gastrointestinal: Abdomen is soft and nontender, no masses, bowel sounds normal. Neurological: Awake and alert, sensory and motor exams grossly normal. Skin: Warm and dry, no rashes. Musculoskeletal: Neck is supple nontender. Extremities symmetrical, full range of motion. Psychiatric: Patient is oriented X 3, there is no agitation. Constitutional: Initial Vital Signs Temperature (C) 36.7 C 03/01/19 12:15 Heart Rate 117 H 03/01/19 12:15 Respiratory Rate 18 03/01/19 12:15 Blood Pressure 226/134 H 03/01/19 12:15 O2 Sat (%) 96 03/01/19 12:15 O2 Delivery Mode Room Air Allergies/Adverse Reactions: Penicillins Allergy (Verified 03/01/19 12:14) Home Medications: Medication Instructions Recorded Ibuprofen [Advil Migraine] 200 mg PO DAILY PRN 12/18/18 Multivitamins [Multivitamin (*)] 1 each PO DAILY 12/18/18 FLUoxetine [Prozac 20 MG (*)] 20 mg PO DAILY #30 cap 12/22/18 Lisinopril [Zestril] 40 mg PO DAILY #30 tablet 12/22/18 amLODIPine BESYLATE [Norvasc 5 mg 5 mg PO DAILY #30 tab 12/22/18 (*)] FLUoxetine [Prozac 20 MG (*)] 20 mg PO DAILY #30 cap 03/01/19 Lisinopril [Zestril] 40 mg PO DAILY #30 tablet 03/01/19 amLODIPine BESYLATE [Norvasc 5 mg 5 mg PO DAILY #30 tab 03/01/19 (*)] Medical Decision Making - Diagnostics EKG Interpretation: EKG interpreted by me shows normal sinus rhythm normal interval and axis. QRS shows likely old anterior OK. No significant ST elevation or depression. No arrhythmia. The rate is 87 No change from previous EKG December 2018 Procedures: Prozac, lisinopril, Norvasc orally IV normal saline, monitor ED Course/Re-evaluation: Re-evaluation 1:40 p.m.. Blood pressure is 10/127. Patient is tearful. He tells me his life anxious. He is feeling a burden on his friends. He is ambivalent about harming himself. He would like to talk with mental health. Re-evaluation 2:45 p.m.. Patient is stable. Current blood pressure is 179/98 with heart rate 83 Patient has no complaints. Patient and I discussed laboratory evaluation, treatment plan including criteria for return importance of follow-up and further evaluation. He expresses understanding and agreement. We had bilingual case manager see the patient and he will be taxi over to have evaluation by mental health. He also has of an appointment tomorrow morning at [facility] for further evaluation. He expresses understanding and agreement Differential Diagnosis: Hypertension history an out of medication for week and a half with elevated blood pressure. No evidence for acute coronary syndrome. Blood pressures been well controlled on his usual blood pressure medications. He is feeling anxious and depressed. He will have mental health evaluation this afternoon. - Data Points Laboratory Results: Laboratory Results 03/01/19 14:30 03/01/19 14:30 03/01/19 03/01/19 03/01/19 14:38 14:30 14:30 WBC RBC Hgb Hct MCV MCH MCHC RDW Plt Count MPV Neut % (Auto) Lymph % (Auto) [place] % (Auto) Eos % (Auto) Baso % (Auto) Nucleat RBC Rel Count Absolute Neuts (auto) Absolute Lymphs (auto) Absolute Monos (auto) Absolute Eos (auto) Absolute Basos (auto) Absolute Nucleated RBC Immature Gran % Immature Gran # Sodium 137 mEq/L mEq/L (135-145) Potassium 3.2 mEq/L L mEq/L (3.5-5.2) Chloride 106 mEq/L mEq/L (97-110) Carbon Dioxide 24 mEq/l mEq/l (22-31) Anion Gap 7 mEq/L mEq/L (6-14) BUN 11 mg/dL mg/dL (7-23) Creatinine 1.0 mg/dL mg/dL (0.7-1.3) Estimated GFR > 60 Glucose 86 mg/dL mg/dL (70-100) Calcium 9.1 mg/dL mg/dL (8.5-10.4) POC Troponin I 0.00 ng/mL ng/mL (0.00-0.08) Urine Opiates Screen NEGATIVE (NEGATIVE) Urine Barbiturates NEGATIVE (NEGATIVE) Ur Phencyclidine Scrn NEGATIVE (NEGATIVE) Ur Amphetamine Screen NEGATIVE (NEGATIVE) U Benzodiazepines Scrn NEGATIVE (NEGATIVE) Urine Cocaine Screen NEGATIVE (NEGATIVE) U Marijuana (THC) Screen NON-NEGATIVE H (NEGATIVE) Ethyl Alcohol < 10 mg/dL mg/dL (0-10) 03/01/19 14:30 WBC 7.91 10^3/uL 10^3/uL (3.80-9.50) RBC 4.44 10^6/uL 10^6/uL (4.40-6.38) Hgb 14.4 g/dL g/dL (13.7-17.5) Hct 40.4 % % (40.0-51.0) MCV 91.0 fL fL (81.5-99.8) MCH 32.4 pg pg (27.9-34.1) MCHC 35.6 g/dL g/dL (32.4-36.7) RDW 13.5 % % (11.5-15.2) Plt Count 260 10^3/uL 10^3/uL (150-400) MPV 9.6 fL fL (8.7-11.7) Neut % (Auto) 71.5 % % (39.3-74.2) Lymph % (Auto) 18.8 % % (15.0-45.0) [place] % (Auto) 6.3 % % (4.5-13.0) Eos % (Auto) 2.8 % % (0.6-7.6) Baso % (Auto) 0.3 % % (0.3-1.7) Nucleat RBC Rel Count 0.0 % % (0.0-0.2) Absolute Neuts (auto) 5.66 10^3/uL 10^3/uL (1.70-6.50) Absolute Lymphs (auto) 1.49 10^3/uL 10^3/uL (1.00-3.00) Absolute Monos (auto) 0.50 10^3/uL 10^3/uL (0.30-0.80) Absolute Eos (auto) 0.22 10^3/uL 10^3/uL (0.03-0.40) Absolute Basos (auto) 0.02 10^3/uL 10^3/uL (0.02-0.10) Absolute Nucleated RBC 0.00 10^3/uL 10^3/uL (0-0.01) Immature Gran % 0.3 % % (0.0-1.1) Immature Gran # 0.02 10^3/uL 10^3/uL (0.00-0.10) Sodium Potassium Chloride Carbon Dioxide Anion Gap BUN Creatinine Estimated GFR Glucose Calcium POC Troponin I Urine Opiates Screen Urine Barbiturates Ur Phencyclidine Scrn Ur Amphetamine Screen U Benzodiazepines Scrn Urine Cocaine Screen U Marijuana (THC) Screen Ethyl Alcohol Medications Given: Fluoxetine HCl (Prozac) 20 mg PO DAILY LAYO Stop: 08/28/19 13:14 Last Admin: 03/01/19 13:51 Dose: 20 mg Discontinued Medications Amlodipine Besylate (Norvasc) 5 mg PO EDNOW ONE Stop: 03/01/19 13:06 Last Admin: 03/01/19 13:21 Dose: 5 mg Sodium Chloride (Ns) 1,000 mls @ 0 mls/hr IV EDNOW ONE; Wide Open PRN Reason: Protocol Stop: 03/01/19 13:51 Last Admin: 03/01/19 14:30 Dose: 1,000 mls Lisinopril (Zestril) 40 mg PO EDNOW ONE Stop: 03/01/19 13:06 Last Admin: 03/01/19 13:21 Dose: 40 mg Point of Care Test Results: Chemistry 03/01/19 14:38 POC Troponin I 0.00 ng/mL ng/mL (0.00-0.08) Departure - Departure Disposition: Home, Routine, Self-Care Clinical Impression: Hypertension Qualifiers: Hypertension type: essential hypertension Qualified Code(s): I10 - Essential ( primary) hypertension Depression Qualifiers: Depression Type: unspecified Qualified Code(s): F32.9 - Major depressive disorder, single episode, unspecified Condition: Good Instructions: Hypertension (ED) Additional Instructions: Talk to mental health this afternoon as we have arranged. Re-evaluation at [facility] tomorrow morning for re-evaluation of your blood pressure. Take your blood pressure medications as prescribed. Return for worsening symptoms Referrals: NONE *PRIMARY CARE P,. [Primary Care Provider] - As per Instructions [facility] [Outside] - 1 day without fail [facility] [Outside] - 1 day without fail Prescriptions: amLODIPine BESYLATE [Norvasc 5 mg (*)] 5 mg PO DAILY #30 tab FLUoxetine [Prozac 20 MG (*)] 20 mg PO DAILY #30 cap Lisinopril [Zestril] 40 mg PO DAILY #30 tablet
[2019-03-01] MEDS ORDERED: amLODIPine BESYLATE 5 MG TAB PO ONE (13:05)
[2019-03-01] MEDS ORDERED: LISINOPRIL 20 MG TAB PO ONE (13:05)
[2019-03-01] MEDS ORDERED: FLUoxetine 20 MG CAP PO SCH (13:15)
--- NOTE | 2019-03-01 13:23 | CPEKG ---
Test Reason : OPEN Blood Pressure : / mmHG Vent. Rate : 087 BPM Atrial Rate : 087 BPM P-R Int : 190 ms QRS Dur : 092 ms QT Int : 354 ms P-R-T Axes : 051 004 018 degrees QTc Int : 426 ms Sinus rhythm Probable left atrial enlargement Anterior infarct, old Confirmed by Nerissa Mortensen ([id number]) on 03/01/2019 1:23:17 PM Referred By: NERISSA MORTENSEN Confirmed By:Nerissa Mortensen
[2019-03-01] MEDS ORDERED: NS 1,000 ML IV ONE (13:50)
[2019-03-01 14:41] LABS: PLATELET COUNT 260 10^3/uL (150-400)
[2019-03-01 15:09] VITALS: BP 179/98
--- NOTE | 2019-03-01 18:51 | ASMTCMCOM ---
CM Note CM Note Notes: Requested to speak to pt re: outpatient primary care and mental health followup. Spoke w/pt and he says he was unable to make it to the [facility] appt made for him back in December for 12/24/18 and has not followed up since due to pt being out of town (in [place] for a job interview, [place] visiting his elderly parents and [place] visiting a friend). Pt states he does not remember being provided any other community resource info back in December, despite 12/20/18 CM Report from that admission stating he was provided info on [facility], [facility], [facility], [facility], [facility], etc. Pt states he has been staying w/his friend, Nafisa (sp?) recently "but I feel like a burden and that she is tiring of me." CM called and scheduled pt a followup appt at [facility] for tomorrow 03/02/19 at 8:40a ( w/ 8:20am arrival) w/TATIANA Gaffney. Pt very tearful and states he has also been out of his anti-depressant for the past week or so. CM provided extensive empathetic listening and emotional support. Pt denies SI/HI but mainly keeps saying "I'm tired of being a burden on my family and friends." CM spoke w/ED Provider regarding whether he thought pt needed a mental health eval here in the ED; Dr Mortensen felt that it was appropriate for pt to discharge to the [facility]. CM offered this to the pt and offered to provide a cab and pt is comfortable with this plan and appreciative of assistance. Pt's HTN and anti-depressent Rxns filled via pt's Medicaid at [facility] and they were delivered to pt in the ED waiting area. CM called to arrange for a Medicaid a couple of times after pt was d/c'd and was on hold >10 min both times, so JAZZY decided to arrange for a [facility] for pt to be transported to [facility]. JAZZY called [facility] at the [facility] ([phone]) and spoke w/Nevin; CM notified them of pt being referred and transported there. Pt aware that depending on his [facility] assessment/eval and dc plan, pt may be discharged from there to followup outpatient. Pt states he knows to call and cancel/reschedule [facility] appt if pt ends up needing placement from [facility]. Overall, pt was provided info and handouts on: [facility] location, main #, and their Homeless Walk In Hours; [facility] various locations, main #, and / [facility] location and Crisis hotline #; [facility] pamphlet and local liason's contacts; [facility] and [facility] location; and various other homelessness resource lists. CM sent a referral to [facility]. CM available for further assistance if needed. Date Signed: 03/01/2019 06:07 PM Electronically Signed By:Graciela Ramsay RN
== END 2019-03-01 15:32 | disposition home or self-care (01) ==
DX: I10 Essential (primary) hypertension (principal); F32.9 Major depressive disorder, single episode, unspecified; E86.9 Volume depletion, unspecified
CPT/HCPCS: 80305; 84484-ER; G0480